=== PATIENT | female | born 1970 | race Hispanic/Latino ===

== ENCOUNTER 2018-05-16 06:37 | Day surgery (SDC) | payer BC ==
[2018-05-15 15:52] LABS: BASOPHILS % (AUTO) 1.3 % (0.0-5.0); EOSINOPHILS % (AUTO) 1.8 % (0.0-8.0); HEMATOCRIT 39.1 % (36-48); MEAN CORPUSCULAR HEMOGLOBIN 30.4 pg (27.0-33.0); MEAN CORPUSCULAR HGB CONC 33.6 g/dL (32.0-36.0); MEAN CORPUSCULAR VOLUME 90.5 fL (79-99); MONOCYTES % (AUTO) 7.3 % (3.0-13.0); NEUTROPHILS % (AUTO) 59.6 % (40.0-77.0); NUCLEATED RED BLOOD CELLS 0.1 % (0.0-0.19); PLATELET COUNT (AUTO) 272 K/uL (130-400); RED BLOOD CELL COUNT(AUTO) 4.32 MIL/uL (4.00-5.50); RED CELL DISTRIBUTION WIDTH 13.8 % (11.0-15.5); WHITE BLOOD COUNT (AUTO) 9.5 K/uL (4.8-10.8)
[2018-05-15 16:02] LABS: CREATININE 0.7 mg/dL (0.5-1.5); POTASSIUM 3.7 mmol/L (3.5-5.1)
[2018-05-15 16:25] VITALS: BP 120/63
[2018-05-16] VITALS (28 sets, daily range): BP systolic 111–164; BP diastolic 62–94
[~2018-05-16] VITALS: Ht 154.9 cm; Wt 132.5 kg
[~2018-05-16 06:37] MED LIST: ICOS1CAP PO; NORG1TAB53 PO
[2018-05-16] MEDS ORDERED: LACTATED RINGERS 1000ML 1,000 ML IV ONE (07:01)
[2018-05-16] MEDS ORDERED: CLINDAMYCIN 900 MG/D5% WATER 50 ML IV ONE (07:04)
--- NOTE | 2018-05-16 07:49 | NUR ---
NURSING COMMUNICATION: NOTIFIED KENY FORREST OF PT UPPER LUNG, WHEEZING ON EXPIATORY, PT ASSESS BY YEAST PUSHER, PT STATES SHE HAD RECENTLY BEEN SICK, FINISHED TAMIFLU AND ANTHRAMYCIN MEDICATIONS ON Saturday05/11/2018. PT HAS NON PRODUCTIVE COUGH. NO NEW ORDERS RECEIVED, YEAST PUSHER STATED HE WILL TREAT PT INTRA PROCEDURE FOR WHEEZING.
[2018-05-16] MEDS ORDERED: CEFAZOLIN 3GM /D5W 100ML 100 ML IV PRN (08:00)
[2018-05-16] MEDS ORDERED: PROPOFOL 10 MG/ML 20ML VIAL IV ONE (08:24)
[2018-05-16] MEDS ORDERED: ONDANSETRON HCL 4 MG/2 ML VIAL ONE (08:24)
[2018-05-16] MEDS ORDERED: DEXAMETHASONE SOD PHOSPHATE 10MG/ML 1ML VIAL ONE (08:24)
[2018-05-16] MEDS ORDERED: LIDOCAINE PF 2% 5ML ABBOJECT ONE (08:24)
[2018-05-16] MEDS ORDERED: MIDAZOLAM HCL 1 MG/ML 2ML VIAL ONE (08:24)
[2018-05-16] MEDS ORDERED: FENTANYL CITRATE PF 50 MCG/1 ML 2ML VIAL ONE ×2 (08:25→09:10)
[2018-05-16] MEDS ORDERED: ROCURONIUM 10MG/1ML SYR 10 MG/ML ML ONE (08:28)
[2018-05-16] MEDS ORDERED: NEOSTIGMINE 5MG/5ML SYR IV ONE (09:31)
[2018-05-16] MEDS ORDERED: GLYCOPYRROLATE 1 MG/5 ML SYRINGE ONE (09:31)
[2018-05-16] MEDS ORDERED: CLIN300C3 PO (09:45)
[2018-05-16] MEDS ORDERED: TYL3 PO (09:45)
[2018-05-16] MEDS ORDERED: NAPR-1192 PO (09:45)
[2018-05-16] MEDS ORDERED: IPRATROPIUM/ALBUTEROL SULFATE 3 ML SOLUTION IH ONE ×2 (10:08→11:11)
[2018-05-16] MEDS ORDERED: RACEPINEPHRINE HCL 2.25% 0.5 ML NEB SOLN ONE (10:08)
[2018-05-16] MEDS ORDERED: KETOROLAC TROMETHAMINE 30MG/ML ONE (10:38)
--- NOTE | 2018-05-16 12:40 | NUR ---
UP TO CHAIR ,STATES FEELS BETTER ,ENCOURAGED TO DB AND COUGH ,DOES WELL ,DRY COUGH ,SHOWED HOW TO USE CRUTCHES ,,RETURNS DEMONSTRATION ,DOES WELL ,NO COMPLAINTS OF PAIN ,,,WAiting for ride
--- NOTE | 2018-05-16 13:00 | NUR ---
TO CAR VIA W/C,,NO COMPLAINTS AT PRESENT,,,ENCOURAGED TO KEEP LEGS ELEVATED,STATES YES , WILL DO,DOES ALL THE TIME AT HOME ,
== END 2018-05-16 13:00 | disposition home or self-care (01) ==
LOC: DAH 06:37
PROVIDERS: ATTEND Orthopaedic Surgery
DX: M23.221 Derangement of posterior horn of medial meniscus due to old tear or injury, right knee (principal); M94.261 Chondromalacia, right knee; Z79.899 Other long term (current) drug therapy; Z98.890 Other specified postprocedural states; G89.29 Other chronic pain; Z88.0 Allergy status to penicillin; M17.12 Unilateral primary osteoarthritis, left knee; E66.01 Morbid (severe) obesity due to excess calories
CPT/HCPCS: 29881; 36415; 80048; 84703; 85025; 94640 ×3; A4606; A4649 ×2; A4930 ×2; A6223; J1100; J1885; J2001; J2250; J2405; J2704; J2710; J3010 ×2; J3490 ×2; J7030; J7120